=== PATIENT | female | born 1950 | race Caucasian/White ===

== ENCOUNTER 2019-12-24 04:58 | Emergency (ER) | payer MEDICARE ==
--- NOTE | 2019-12-24 05:12 | ED Physician Documentation ---
History of Present Illness - Stated complaint Stated Complaint: R SIDE BACK PX - History obtained from History obtained from: Patient (Patient is a very pleasant healthy 69-year-old female who woke up from her sleep tonight with severe right-sided flank pain that was sudden in onset associated with nausea one episode of vomiting she reports the pain is coming and going she denies any history of previous similar episode she is never had any previous abdominal surgeries. She does report mild dysuria without hematuria and no fevers. She denies chest pain or shortness of breath. denies diarrhea or constipation.) Review of Systems Constitutional: reports: Reviewed and negative Eyes: reports: Reviewed and negative Ears: reports: Reviewed and negative Nose: reports: Reviewed and negative Throat: reports: Reviewed and negative Cardiac: reports: Reviewed and negative Respiratory: reports: Reviewed and negative GI: reports: Reviewed and negative : reports: Other (Right-sided flank pain) Skin: reports: Reviewed and negative Musculoskeletal: reports: Reviewed and negative Neurologic: reports: Reviewed and negative Psychiatric: reports: Reviewed and negative Endocrine: reports: Reviewed and negative Immunocompromised: reports: Reviewed and negative PD PAST MEDICAL HISTORY - Present Medications Home Medications: Ambulatory Orders Medication Instructions Recorded Confirmed Hydrocodone/Acetaminophen [[place] 1 each PO Q6HR PRN #10 tablet 12/24/19 5-325 Tablet] Ondansetron Odt [Zofran Odt] 4 mg TL Q6H PRN #10 tablet 12/24/19 - Allergies Allergies/Adverse Reactions: Allergies Allergy/AdvReac Type Severity Reaction Status Date / Time amoxicillin Allergy Unknown Verified 12/24/19 05:21 PD ED PE NORMAL - Vitals Vital signs reviewed: Yes - General General: Alert and oriented X 3, No acute distress, Well developed/nourished - HEENT HEENT: PERRL, Moist mucous membranes - Neck Neck: Supple, no meningeal sign - Cardiac Cardiac: RRR, No murmur, Strong equal pulses - Respiratory Respiratory: No respiratory distress, Clear bilaterally - Abdomen Abdomen: Normal bowel sounds, Soft, Non tender, Non distended, Other (No midline abdominal pulsatile mass otherwise the abdomen soft nontender nondistended with normoactive bowel sounds no guarding no rebounding no hepatosplenomegaly no CVA tenderness) - Back Back: No spinal TTP, Other (Positive for right-sided CVA tenderness to palpation) - Derm Derm: Warm and dry - Extremities Extremities: No deformity, No tenderness to palpate, Normal ROM s pain, No edema, No calf tenderness / cord - Neuro Neuro: Alert and oriented X 3, 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, No motor deficit, No sensory deficit, Normal speech - Psych Psych: Normal mood, Normal affect Results - Vitals Vitals: Vital Signs - 24 hr 12/24/19 05:14 Temperature 36.6 C Heart Rate 60 Respiratory 18 Rate Blood Pressure 121/82 H O2 Saturation 98 Oxygen O2 Source Room air - Labs Labs: Laboratory Tests 12/24/19 12/24/19 12/24/19 05:50 05:50 05:50 WBC 5.7 RBC 4.34 Hgb 12.9 Hct 39.5 MCV 91.0 MCH 29.7 MCHC 32.7 RDW 12.8 Plt Count 205 MPV 10.9 H Neut # (Auto) 4.0 Lymph # (Auto) 1.3 L Morgan # (Auto) 0.3 Eos # (Auto) 0.1 Baso # (Auto) 0.0 Absolute Nucleated RBC 0.00 Nucleated RBC % 0.0 PT 11.9 INR 1.0 APTT 26.7 Sodium 139 Potassium 4.0 Chloride 104 Carbon Dioxide 27 Anion Gap 8.0 BUN 19 Creatinine 1.0 Estimated GFR (MDRD) 55 L Glucose 115 H Lactic Acid Calcium 8.9 Total Bilirubin 0.7 AST 22 ALT 19 Alkaline Phosphatase 42 Total Creatine Kinase 126 Total Protein 6.4 L Albumin 4.0 Globulin 2.4 Albumin/Globulin Ratio 1.7 Lipase 33 12/24/19 05:50 WBC RBC Hgb Hct MCV MCH MCHC RDW Plt Count MPV Neut # (Auto) Lymph # (Auto) Morgan # (Auto) Eos # (Auto) Baso # (Auto) Absolute Nucleated RBC Nucleated RBC % PT INR APTT Sodium Potassium Chloride Carbon Dioxide Anion Gap BUN Creatinine Estimated GFR (MDRD) Glucose Lactic Acid 1.1 Calcium Total Bilirubin AST ALT Alkaline Phosphatase Total Creatine Kinase Total Protein Albumin Globulin Albumin/Globulin Ratio Lipase PD MEDICAL DECISION MAKING - ED course Complexity details: reviewed results, re-evaluated patient, considered differential (History and exam are concerning for nephrolithiasis.She is not hypotensive or hypertensive there is no midline abdominal pulsatile mass also on the differential would be appendicitis as well. We will send a urinalysis for evaluation was IV access IV fluids IV analgesics antiemetics send CBC and CMP and CT scan the abdomen and pelvis.), d/w patient (patient updated. work up is consistent with ureterolithiasis. no fever, no white count, able to void, patient denies hematuria or dysuria. patient requesting to be dcd home at this time. she will follow up with her pcp this week, patient also provided outpatient referral to urology, return with fevers or any concerns.) Departure - Departure Disposition: Home, Self Care Clinical Impression: Ureterolithiasis, Kidney stones Condition: Stable Instructions: ED Stone Renal W Colic Follow-Up: Provider,Other [Primary Care Provider] - Tory Serrano MD [Physician No Access] - Tomorrow Prescriptions: Hydrocodone/Acetaminophen [[place] 5-325 Tablet] 1 each PO Q6HR PRN #10 tablet PRN Reason: Pain Ondansetron Odt [Zofran Odt] 4 mg TL Q6H PRN #10 tablet PRN Reason: Nausea / Vomiting Comments: hydrate well, call the urologist to schedule a follow up. return to the ED with any concerns.
[2019-12-24] MEDS ORDERED: ONDANSETRON 4 MG/2 ML VIAL IVP STA (05:37)
[2019-12-24] MEDS ORDERED: SODIUM CHLORIDE 0.9% 1,000 ML IV STA (05:37)
[2019-12-24] MEDS ORDERED: MORPHINE 2 MG/ML CARPUJECT IVP STA (05:37)
[2019-12-24 06:06] LABS: BASOPHILS % (AUTO) 0.5 %; EOSINOPHILS # (AUTO) 0.1 10^3/uL (0.0-0.7); HGB - HEMOGLOBIN 12.9 g/dL (12.0-16.0); LYMPHOCYTES # (AUTO) 1.3 10^3/uL (1.5-3.5); LYMPHOCYTES % (AUTO) 23.3 %; MEAN CORPUSCULAR HEMOGLOBIN 29.7 pg (27.0-31.0); MEAN CORPUSCULAR HGB CONC 32.7 g/dL (32.0-36.0); MEAN PLATELET VOLUME 10.9 fL (7.9-10.8); MONOCYTES # (AUTO) 0.3 10^3/uL (0.0-1.0); MONOCYTES % (AUTO) 4.5 %; NEUTROPHILS % (AUTO) 70.4 %; PLT - PLATELET COUNT 205 10^3/uL (130-450); RED BLOOD COUNT 4.34 10^6/uL (4.20-5.40); RED CELL DISTRIBUTION WIDTH 12.8 % (12.0-15.0); WHITE BLOOD COUNT 5.7 x10^3/uL (4.8-10.8)
[2019-12-24 06:12] LABS: PT - PROTHROMBIN TIME 11.9 secs (9.9-12.6)
--- NOTE | 2019-12-24 06:16 | CT Report ---
Reason: right flank pain Procedure Date: 12/24/2019 Accession Number: [id number] / [id number] Procedure: CT - Abdomen/Pelvis WO CPT Code: Final Report FULL RESULT: EXAM: CT ABDOMEN AND PELVIS (CT KUB) EXAM DATE: 12/24/2019 06:00 AM. CLINICAL HISTORY: Right flank pain. COMPARISONS: None. TECHNIQUE: Routine axial helical CT imaging was performed through the abdomen and pelvis without IV contrast. Reconstructions: Coronal and sagittal. In accordance with CT protocol optimization, one or more of the following dose reduction techniques were utilized for this exam: automated exposure control, adjustment of mA and/or KV based on patient size, or use of iterative reconstructive technique. FINDINGS: Lung Bases: Minimal basilar atelectasis. Right Kidney/Ureter: Right hydronephrosis and hydroureter, with a 5 mm calculus in the distal right ureter, at the level of the inferior margin of the right sacroiliac joint. No additional upper tract calculus seen. Left Kidney/Ureter: 7 mm left renal calculus. No hydronephrosis or hydroureter. Other Solid Organs: Multiple hepatic cysts. The spleen, pancreas and adrenal glands appear unremarkable. Gallbladder/Bile Ducts: Unremarkable. Peritoneal Cavity: No free fluid, free air or linda adenopathy. Bowel is grossly unremarkable. Pelvic Organs: No bladder stones or wall thickening. Noncontrast images of the visualized pelvic organs are unremarkable. Vasculature: Unremarkable. Other: None. IMPRESSION: 5 mm calculus in the distal right ureter, producing right hydronephrosis. 7 mm nonobstructing left renal calculus. [facility]
[2019-12-24 06:19] LABS: ALBUMIN/GLOBULIN RATIO 1.7 (1.0-2.2); BILIRUBIN,TOTAL 0.7 mg/dL (0.2-1.0); CALCIUM 8.9 mg/dL (8.5-10.3); PARTIAL THROMBOPLASTIN TIME 26.7 secs (24.9-33.3); TOTAL PROTEIN 6.4 g/dL (6.7-8.2)
[2019-12-24 07:01] VITALS: BP 122/78
[2019-12-24 07:35] LABS: BILIRUBIN,URINE NEGATIVE (NEGATIVE); GLUCOSE, URINE (UA) NEGATIVE (NEGATIVE); KETONES,URINE (UA) TRACE mg/dL (NEGATIVE); LEUKOCYTE ESTERASE, URINE TRACE (NEGATIVE); NITRITE,URINE NEGATIVE (NEGATIVE); OCCULT BLOOD,URINE LARGE (NEGATIVE); PROTEIN,URINE NEGATIVE (NEGATIVE); UROBILINOGEN,URINE 0.2 (NORMAL) E.U./dL (NORMAL)
[2019-12-24 07:37] LABS: CLARITY,URINE CLOUDY (CLEAR); HCG UR QUAL NEGATIVE
[2019-12-24 07:48] LABS: BACTERIA,URINE Moderate /HPF (None Seen); RBC,URINE TNTC /HPF (0-5); SQUAMOUS EPITHELIAL CELL,UR RARE Squamous (<= Few)
== END 2019-12-24 08:08 | disposition home or self-care (01) ==
LOC: ED 04:58
DX: N13.2 Hydronephrosis with renal and ureteral calculous obstruction (principal)
CPT/HCPCS: 36415; 74176; 80053; 81001; 81003; 81025; 82550; 83605; 83690; 85025; 85610; 85730; 87086; 96361; 96374; 99284

== ENCOUNTER 2024-02-29 15:37 | Outpatient (CLI) | payer MEDICARE ==
[2024-02-29 15:47] LABS: BASOPHILS % (AUTO) 0.6 %; EOSINOPHILS # (AUTO) 0.1 10^3/uL (0.0-0.7); EOSINOPHILS % (AUTO) 0.9 %; HCT - HEMATOCRIT 39.5 % (37.0-47.0); LYMPHOCYTES # (AUTO) 1.8 10^3/uL (1.5-3.5); LYMPHOCYTES % (AUTO) 33.7 %; MEAN CORPUSCULAR HEMOGLOBIN 29.3 pg (27.0-31.0); MEAN CORPUSCULAR HGB CONC 32.9 g/dL (32.0-36.0); MEAN CORPUSCULAR VOLUME 89.2 fL (81.0-99.0); MEAN PLATELET VOLUME 10.6 fL (7.9-10.8); MONOCYTES # (AUTO) 0.3 10^3/uL (0.0-1.0); MONOCYTES % (AUTO) 5.7 %; NEUTROPHILS # (AUTO) 3.1 10^3/uL (1.5-6.6); NEUTROPHILS % (AUTO) 59.1 %; PLT - PLATELET COUNT 221 10^3/uL (130-450); RED BLOOD COUNT 4.43 10^6/uL (4.20-5.40); WHITE BLOOD COUNT 5.3 x10^3/uL (4.8-10.8)
[2024-02-29 16:18] LABS: CALCIUM 9.4 mg/dL (8.5-10.3); POTASSIUM 4.1 mmol/L (3.5-4.5)
== END 2024-02-29 15:38 | disposition home or self-care (01) ==
LOC: LAB 15:37
PROVIDERS: ATTEND Student in an Organized Health Care Education/Training Program
DX: R19.7 Diarrhea, unspecified (principal)
CPT/HCPCS: 36415; 80048; 85025

== ENCOUNTER 2024-03-04 09:36 | Outpatient (CLI) | payer MEDICARE | END 2024-03-04 09:37 | disposition home or self-care (01) | LOC: LAB.R 09:36 | PROVIDERS: ATTEND Student in an Organized Health Care Education/Training Program | DX: R19.7 Diarrhea, unspecified (principal) | CPT/HCPCS: 87045; 87046; 87177; 87209; 87329; 87427; 87493 ==